=== PATIENT | male | born 1985 | race Caucasian/White ===

== ENCOUNTER 2022-05-24 21:31 | Emergency (ER) | payer MEDICAID ==
[~2022-05-24] VITALS: Ht 190.5 cm; Wt 95.5 kg
[~2022-05-24 21:31] MED LIST: BUSP10TA11 PO; DULO-31 PO; LITH300T16 PO; SERT-153 PO; WEL75T PO
[2022-05-24 22:46] VITALS: BP 138/91
== END 2022-05-25 01:08 | disposition left against medical advice (07) ==
LOC: ER 21:31
DX: K08.89 Other specified disorders of teeth and supporting structures (principal); Z53.21 Procedure and treatment not carried out due to patient leaving prior to being seen by health care provider